=== PATIENT | female | born 2000 | race Caucasian/White ===

== ENCOUNTER 2020-02-21 14:01 | Emergency (ER) | payer OTHER, SELFPAY ==
--- NOTE | ~2020-02-21 | XR_ITS ---
EXAMINATION: XR abdomen/kub 1V INDICATION: Right flank pain and hematuria TECHNIQUE: Supine views of the abdomen were obtained on 2 radiographs. COMPARISON: None FINDINGS: No abnormal calcifications are identified. There are no dilated ducts of bowel. The visuali zed osseous structures are unremarkable. IMPRESSION: 1. No urolithiasis identified. Reviewed, dictated and finalized at location B.
[2020-02-21 14:09] VITALS: BP 183/96; PULSE 88; RESP 16; TEMP 37; O2SAT 98
--- NOTE | 2020-02-21 14:27 | ED.FEMALEGU ---
HPI - Female Genitourinary General Chief complaint: Urogenital-Female Stated complaint: kidney pain?? Time Seen by Provider: 02/21/20 14:27 Source: patient History of Present Illness HPI Narrative: Patient presents with right flank pain. Patient states the pain has been on and off for the last 2 days. Patient denies any burning with urination denies any urinary frequency denies any abdominal pain no pelvic pain. Patient denies any gross hematuria. Patient has been taking ibuprofen for pain and discomfort but has not taken any today. Patient denies any concern for STDs. Patient denies any fever. Patient states she did feel nauseated this morning but no emesis. Patient denies any history of kidney stones. Related Data Allergies Allergy/AdvReac Type Severity Reaction Status Date / Time Penicillins Allergy Hives Verified 02/21/20 14:17 Review of Systems Review of Systems: Narrative: CONSTITUTIONAL: Denies fever, chills, or sweats. EYES: Denies visual changes, redness, or discharge. ENT: Denies rhinorrhea, congestion, sore throat, or otalgia. CARDIOVASCULAR: Denies chest pain, palpitations, or edema. RESPIRATORY: Denies cough or dyspnea. GASTROINTESTINAL: Denies abdominal pain, nausea, vomiting, or diarrhea. GENITOURINARY: Denies dysuria or hematuria. SKIN: Denies rash or itching. MUSCULOSKELETAL: Denies back pain, joint pain, or myalgia. Right upper back pain NEUROLOGIC: Denies headache, numbness, or weakness. PSYCHIATRIC: Denies anxiety or depression. PMFSH Comments At time of signature, agree with nursing past medical, surgical, social and family history. There is no relevant family history pertinent to the presenting complaint Exam Narrative: Exam Narrative: GENERAL: Well-appearing, well-nourished, and in no acute distress. HEAD: Normocephalic, atraumatic. EYES: PERRLA and EOMI. ENT: Nares clear, no rhinorrhea or epistaxis. Mucous membranes moist. NECK: Supple. CHEST: Clear to auscultation. No respiratory distress. HEART: Regular rate and rhythm. No murmur heard. Normal peripheral pulses. ABDOMEN: Soft, nontender, nondistended, normal active bowel sounds. Right flank tenderness EXTREMITIES: Normal range of motion. No edema. SKIN: Warm, dry, no rash. NEURO: No focal deficits. Alert and oriented x3. Sunflower Coma Scale Eye Opening: Spontaneous 4 Cece Coma Scale Motor: Obeys Commands 6 Sunflower Coma Scale Verbal: Oriented 5 Sunflower Coma Scale Total 15 Course Vital Signs Vital signs: Vital Signs Temperature 37.0 C 02/21/20 14:09 Pulse Rate 88 02/21/20 14:09 Respiratory Rate 16 02/21/20 14:09 Blood Pressure 183/96 H 02/21/20 14:09 Pulse Oximetry 98 02/21/20 14:09 Temperature 37.0 C 02/21/20 14:09 Pulse Rate 88 02/21/20 14:09 Respiratory Rate 16 02/21/20 14:09 Blood Pressure 183/96 H 02/21/20 14:09 Pulse Oximetry 98 02/21/20 14:09 Please WOLF schedule a followup visit with your personal physician for further evaluation and treatment. Including recheck and discussion of your blood pressure. If your symptoms persist, change or worsen significantly before you can contact your personal physician then please, without delay, go to the emergency department for further evaluation IF SYMPTOMS PERSIST OR WORSEN, FURTHER EVALUATION MAY BE WARRANTED FOR POTENTIAL IMAGING. ADVISED REST, IF PRESCRIBED ANY MEDICATIONS, take medications as prescribed. Call primary care office as soon as possible for follow-up evaluation possible ultrasound of kidneys and repeat urinalysis. Discussed red flags and when to go to ER. Instructed patient to strain all urine and if any new or worsening of any symptoms go to ER immediately for the evaluation treatment. Reexam after Toradol patient states she feels much better pain is much improved. blood pressure 160/88 MDM - Female Genitourinary Differential Diagnosis Differential diagnosis: Likely urinary tract infection, bacterial vaginosis, cervicitis, vagini
[2020-02-21] MEDS: KETOROLAC (*BKC) 60 MG/2 ML VIAL IM (14:32)
== END 2020-02-21 14:50 | disposition home or self-care (01) ==
PROVIDERS: Emergency Provider Nurse Practitioner Family
DX: N39.0 Urinary tract infection, site not specified (principal); J45.909 Unspecified asthma, uncomplicated
CPT/HCPCS: 74018; 81003; 81025; 87086; 87088; 96372; 99213; G0463; J1885